=== PATIENT | male | born 1980 | race Caucasian/White ===

== ENCOUNTER 2019-03-28 07:03 | Emergency (ER) | payer SELFPAY ==
[~2019-03-28] VITALS: Ht 160 cm; Wt 77.6 kg
[2019-03-28 07:17] VITALS: Ht 160 cm; Wt 77.6 kg
[2019-03-28 08:10] LABS: BASOPHIL % 0.4 % (0-2); PLATELET COUNT 227 x10^3mcL (130-400); RED CELL DISTRIBUTION WIDTH 13.3 % (11.5-14.5)
[2019-03-28 08:15] LABS: CALCIUM 9.6 mg/dL (8.5-10.1); CARBON DIOXIDE 30.3 mmol/L (21-32); CHLORIDE SERUM 104 mmol/L (98-107); CREATININE SERUM 0.7 mg/dL (0.7-1.3); GFR1 > 60 mL/min; GLUCOSE SERUM 130 mg/dL (74-106); POTASSIUM SERUM 4.3 mmol/L (3.5-5.1); SODIUM SERUM 144 mmol/L (136-145)
[2019-03-28 08:27] LABS: microscopic required? NO
[2019-03-28 08:29] LABS: ALBUMIN 3.8 g/dL (3.4-5.0); ALKALINE PHOSPHATASE 119 U/L (46-116); ALT/SGPT 115 U/L (16-63); AST/SGOT 61 U/L (15-37); BILIRUBIN TOTAL 0.4 mg/dL (0.20-1.00); LIPASE 139 IU/L (73-393); MAGNESIUM 1.7 mg/dL (1.8-2.4); T4(THYROXINE) 8.5 ug/dL (4.7-13.3)
[2019-03-28 08:33] LABS: TOTAL PROTEIN, SERUM 8.7 g/dL (6.4-8.2)
[2019-03-28 08:37] LABS: UA SPECIFIC GRAVITY 1.015 (1.005-1.035); urine erythrocyte NEGATIVE (NEGATIVE)
[2019-03-28 08:47] LABS: AMPHETAMINE QUAL UR NONE DETECTED (See below)
[2019-03-28 12:56] VITALS: BP 126/77
== END 2019-03-28 12:56 | disposition home or self-care (01) ==
LOC: ED 07:03
PROVIDERS: Emergency Medicine
DX: R42 Dizziness and giddiness (principal); T67.5XXA Heat exhaustion, unspecified, initial encounter; R74.0 Nonspecific elevation of levels of transaminase and lactic acid dehydrogenase [LDH]; Z90.89 Acquired absence of other organs; X58.XXXA Exposure to other specified factors, initial encounter; Y93.89 Activity, other specified; Y92.89 Other specified places as the place of occurrence of the external cause; Y99.8 Other external cause status
CPT/HCPCS: G0480; J3490; J7030; Q0092

== ENCOUNTER 2019-03-30 13:57 | Emergency (ER) | payer SELFPAY ==
[~2019-03-30] VITALS: Ht 160 cm; Wt 77.1 kg
[2019-03-30 14:07] VITALS: Ht 160 cm; Wt 77.1 kg
[2019-03-30 16:39] VITALS: BP 144/83
== END 2019-03-30 18:30 | disposition home or self-care (01) ==
LOC: ED 13:57
DX: R42 Dizziness and giddiness (principal); R51 Headache; T67.5XXA Heat exhaustion, unspecified, initial encounter; X58.XXXA Exposure to other specified factors, initial encounter; Y93.89 Activity, other specified; Y92.89 Other specified places as the place of occurrence of the external cause; Y99.8 Other external cause status
CPT/HCPCS: J8597

== ENCOUNTER 2019-04-11 12:46 | Emergency (ER) | payer SELFPAY ==
[~2019-04-11] VITALS: Ht 160 cm; Wt 78.5 kg
[2019-04-11 12:55] VITALS: Ht 160 cm; Wt 78.5 kg
[2019-04-11 13:14] VITALS: BP 130/82
== END 2019-04-11 15:02 | disposition home or self-care (01) ==
LOC: ED 12:46
DX: S63.91XA Sprain of unspecified part of right wrist and hand, initial encounter (principal); Z90.89 Acquired absence of other organs; W17.89XA Other fall from one level to another, initial encounter; Y93.89 Activity, other specified; Y92.89 Other specified places as the place of occurrence of the external cause; Y99.8 Other external cause status
CPT/HCPCS: Q0092

== ENCOUNTER 2019-04-12 00:32 | Emergency (ER) | payer SELFPAY ==
[~2019-04-12] VITALS: Ht 160 cm; Wt 79.4 kg
[2019-04-12 00:37] VITALS: Ht 160 cm; Wt 79.4 kg
[2019-04-12 01:11] VITALS: BP 144/92
== END 2019-04-12 01:11 | disposition home or self-care (01) ==
LOC: ED 00:32
DX: S60.221D Contusion of right hand, subsequent encounter (principal); X58.XXXD Exposure to other specified factors, subsequent encounter